=== PATIENT | female | born 1970 | race African-American/Black ===

== ENCOUNTER 2016-07-18 11:59 | Emergency (ER) | payer MEDICAID ==
[~2016-07-18] VITALS: Ht 167.6 cm; Wt 70.0 kg
[~2016-07-18 11:59] MED LIST: NONE REPORTED
[2016-07-18 14:41] VITALS: BP 127/85
[2016-07-18 15:01] LABS: BASOPHILS % 0.8 % (0.0-2.0); HEMATOCRIT. 37.7 % (36.0-48.0); MEAN CORPUSCULAR HEMOGLOBIN 33.7 pg (28.0-32.0); MEAN CORPUSCULAR HGB CONC 34.6 g/dL (31.0-37.0); MEAN CORPUSCULAR VOLUME 97.6 fL (81.0-99.0); MEAN PLATELET VOLUME 8.3 fl (7.4-10.4); MONOCYTES % 9.3 % (2.0-8.0); NEUTROPHILS % 47.9 % (40.0-76.0); PLATELET 271 x1000/uL (130-400); RED BLOOD CELL COUNT 3.86 mill/uL (4.2-5.4); RED CELL DISTRIBUTION WIDTH 14.8 % (11.6-14.6); WHITE BLOOD COUNT 4.5 x1000/uL (4.5-11.0)
[2016-07-18 15:08] LABS: ACETAMINOPHEN < 2 ug/mL (10-30); ANION GAP 15; CALCIUM 8.5 mg/dL (8.5-10.1); CARBON DIOXIDE 28 mEq/L (21-32); CHLORIDE 108 mEq/L (98-107); ETHANOL BLOOD 278 mg/dL; INDEX HEMOLYSI 1 (1-3); INDEX ICTERIC 1 (1-4); INDEX LIPEMIC 1 (1-3); UREA NITROGEN BLOOD 9 mg/dL (7-21); eGFR > 60 mL/min (>60)
[2016-07-18 16:38] LABS: CLARITY URINE CLEAR (CLEAR); COLOR URINE YELLOW (YELLOW); GLUCOSE URINE NEGATIVE (NEGATIVE); KETONES URINE NEGATIVE (NEGATIVE); LEUKOCYTE ESTERASE URINE 3+ (NEGATIVE); NITRITE URINE NEGATIVE (NEGATIVE); OCCULT BLOOD URINE 3+ (NEGATIVE); PH URINE 8.5 (4.5-8.0); PROTEIN URINE NEGATIVE (NEGATIVE); SPECIFIC GRAVITY URINE 1.011 (1.005-1.030); UROBILINOGEN URINE 0.2 E.U./dL (0.2-1.0)
[2016-07-18 16:50] LABS: *AMPHETAMINES SCREEN URINE NEGATIVE (NEGATIVE); *BARBITURATES SCREEN URINE NEGATIVE (NEGATIVE); *BENZODIAZEPINES SCREEN URINE NEGATIVE (NEGATIVE); *COCAINE SCREEN URINE NEGATIVE (NEGATIVE); CANNABINOID URINE SCREEN NEGATIVE (NEGATIVE); ECSTASY MDMA SCREEN URINE NEGATIVE (NEGATIVE); METHADONE URINE SCREEN NEGATIVE (NEGATIVE); OPIATES URINE SCREEN NEGATIVE (NEGATIVE); PHENCYCLIDINE URINE SCREEN NEGATIVE (NEGATIVE)
[2016-07-18 17:00] LABS: BACTERIA URINE 1+; SQUAMOUS EPITHELIAL CELL URINE FEW /lpf (RARE/1+)
[2016-07-18 17:01] LABS: RBC URINE 50-100 /hpf (0-2); WBC URINE 15-25 /hpf (0-2)
== END 2016-07-18 18:39 | disposition home or self-care (01) ==
LOC: ER 12:05
DX: N39.0 Urinary tract infection, site not specified (principal); M54.9 Dorsalgia, unspecified; G89.29 Other chronic pain; Z88.5 Allergy status to narcotic agent; Z88.6 Allergy status to analgesic agent; Z88.8 Allergy status to other drugs, medicaments and biological substances; Z91.018 Allergy to other foods
CPT/HCPCS: 36415; 72070; 72100; 72125; 76705; 80048; 80302; 80305; 80329; 81001; 81025; 85025; 99285; G0482

== ENCOUNTER 2016-12-19 23:20 | Emergency (ER) | payer MEDICAID ==
[~2016-12-19] VITALS: Ht 165.1 cm; Wt 63.0 kg
[~2016-12-19 23:20] MED LIST changes: +FOLI-43 PO; +GEMF600T PO; +Multivitamins,Ther W-Minerals PO; +THIA100T72 PO
[2016-12-19 23:58] VITALS: BP 121/79
== END 2016-12-20 07:03 | disposition left against medical advice (07) ==
LOC: ER 23:20
DX: Z04.1 Encounter for examination and observation following transport accident (principal); Z53.21 Procedure and treatment not carried out due to patient leaving prior to being seen by health care provider

== ENCOUNTER 2017-01-30 | Emergency (ER) | payer MEDICAID ==
[~2017-01-30] VITALS: Ht 175.3 cm; Wt 60.0 kg
[2017-01-30 00:32] VITALS: BP 147/84
== END 2017-01-30 09:32 | disposition home or self-care (01) ==
LOC: ER 09:26
DX: G89.29 Other chronic pain (principal); M54.5 Low back pain; J06.9 Acute upper respiratory infection, unspecified; Z88.6 Allergy status to analgesic agent; Z88.8 Allergy status to other drugs, medicaments and biological substances
CPT/HCPCS: 71010; 99283

== ENCOUNTER 2017-02-08 22:23 | Emergency (ER) | payer MEDICAID ==
[~2017-02-08] VITALS: Ht 165.1 cm; Wt 60.0 kg
[2017-02-09] MEDS ORDERED: ONDANSETRON 4MG ODT PO ONE (01:30)
[2017-02-09] MEDS ORDERED: ACETAMINOPHEN 500MG TABLET PO ONE (01:30)
[2017-02-09 02:22] VITALS: BP 141/85
== END 2017-02-09 02:23 | disposition home or self-care (01) ==
LOC: ER 22:23
DX: M79.1 Myalgia (principal); G89.29 Other chronic pain; M62.830 Muscle spasm of back; M54.9 Dorsalgia, unspecified; Z88.6 Allergy status to analgesic agent; Z87.828 Personal history of other (healed) physical injury and trauma; M32.9 Systemic lupus erythematosus, unspecified; Z98.890 Other specified postprocedural states; Z91.011 Allergy to milk products
CPT/HCPCS: 99283; Q0162

== ENCOUNTER 2017-03-06 22:06 | Emergency (ER) | payer MEDICAID, OTHER ==
[~2017-03-06] VITALS: Ht 167.6 cm; Wt 60.0 kg
[2017-03-07] MEDS ORDERED: MORPHINE SULFATE 4 MG/ML CPJ (NOT FOR IM USE) IV STA (03:33)
[2017-03-07] MEDS ORDERED: ONDANSETRON HCL 4MG/2ML VIAL IV STA (03:33)
[2017-03-07] MEDS ORDERED: MORPHINE SULFATE 10 MG/ML CPJ IV STA (03:46)
[2017-03-07] MEDS ORDERED: MORPHINE SULFATE 10 MG/ML CPJ IV SCH (04:00)
[2017-03-07 04:07] LABS: BASOPHILS % 0.6 % (0.0-2.0); EOSINOPHILS % 1.8 % (0.0-5.0); HEMATOCRIT. 39.3 % (36.0-48.0); HEMOGLOBIN. 13.3 g/dL (12.0-16.0); LYMPHOCYTES % 31.7 % (20.0-50.0); MEAN CORPUSCULAR HEMOGLOBIN 32.7 pg (28.0-32.0); MEAN CORPUSCULAR VOLUME 96.7 fL (81.0-99.0); MEAN PLATELET VOLUME 7.4 fl (7.4-10.4); MONOCYTES % 12.8 % (2.0-8.0); NEUTROPHILS % 53.1 % (40.0-76.0); PLATELET 345 x1000/uL (130-400); RED BLOOD CELL COUNT 4.07 mill/uL (4.2-5.4); RED CELL DISTRIBUTION WIDTH 15.1 % (11.6-14.6)
[2017-03-07 04:22] LABS: CARBON DIOXIDE 27 mEq/L (21-32); CHLORIDE 103 mEq/L (98-107); TROPONIN I < 0.02 ng/mL (0.00-0.04)
[2017-03-07 05:40] VITALS: BP 115/71
== END 2017-03-07 06:15 | disposition home or self-care (01) ==
LOC: ER 22:06
DX: R60.0 Localized edema (principal); G89.29 Other chronic pain; M54.5 Low back pain; M32.9 Systemic lupus erythematosus, unspecified; M06.9 Rheumatoid arthritis, unspecified; Z88.6 Allergy status to analgesic agent; Z88.5 Allergy status to narcotic agent; Z88.8 Allergy status to other drugs, medicaments and biological substances
CPT/HCPCS: 36415; 71010; 80053; 81025; 83880; 84484; 85025; 93005; 96374; 96375; 99285; J2270; J2405; J7030; Z7610

== ENCOUNTER 2018-12-19 12:31 | Emergency (ER) | payer MEDICAID, MEDICARE ==
[~2018-12-19] VITALS: Ht 165.1 cm; Wt 59.0 kg
[2018-12-19 14:51] VITALS: BP 154/96
== END 2018-12-19 14:58 | disposition home or self-care (01) ==
LOC: ER 12:53
DX: L73.2 Hidradenitis suppurativa (principal); Z79.899 Other long term (current) drug therapy; Z88.6 Allergy status to analgesic agent; Z88.5 Allergy status to narcotic agent
CPT/HCPCS: 99283

== ENCOUNTER 2019-03-14 15:12 | Emergency (ER) | payer MEDICARE ==
[~2019-03-14] VITALS: Ht 165.1 cm; Wt 66.0 kg
[2019-03-14] MEDS ORDERED: ACETAMINOPHEN 325MG TABLET PO ONE (17:45)
[2019-03-14] MEDS ORDERED: ALBUTEROL (0.083%) 2.5MG/3ML NEB HHN ONE (17:45)
[2019-03-14 17:58] VITALS: BP 137/87
[2019-03-14] MEDS ORDERED: HYDROCODONE/ACETAMINOPHEN 5/325MG TABLET PO ONE (18:00)
== END 2019-03-14 18:12 | disposition home or self-care (01) ==
LOC: ER 15:12
DX: S10.93XA Contusion of unspecified part of neck, initial encounter (principal); S30.0XXA Contusion of lower back and pelvis, initial encounter; M32.9 Systemic lupus erythematosus, unspecified; Z91.011 Allergy to milk products; Z88.5 Allergy status to narcotic agent; Z88.6 Allergy status to analgesic agent; V43.52XA Car driver injured in collision with other type car in traffic accident, initial encounter; Y93.89 Activity, other specified; Y92.488 Other paved roadways as the place of occurrence of the external cause
CPT/HCPCS: 99283